=== PATIENT | female | born 1990 | race Caucasian/White ===

== ENCOUNTER → 2016-12-18 | Outpatient (CLI) | payer OTHER ==
[~2016-12-18] MED LIST: GNP150TA PO; PREN1TAB58; TERC0.8C VAGINAL
== END ==
LOC: HPND 08:31
PROVIDERS: ATTEND Obstetrics & Gynecology
DX: O09.292 Supervision of pregnancy with other poor reproductive or obstetric history, second trimester (principal)
CPT/HCPCS: 76811

== ENCOUNTER 2017-05-07 10:11 | Inpatient (IN) | payer OTHER ==
[2017-05-07] VITALS (98 sets, daily range): BP systolic 94–139; BP diastolic 52–75; PULSE 57–99; RESP 16–22; TEMP 97.7–98.1; O2SAT 97–100
[~2017-05-07 10:11] MED LIST changes: -GNP150TA PO; -TERC0.8C VAGINAL
--- NOTE | 2017-05-07 10:24 | PD ---
HPI Chief Complaint Possible ROM Date Seen: May 07, 2017 Travel History International Travel<30 Days: No Contact w/Intl Traveler<30Days: No History of Present Illness HPI Ms. Morales is a 27 y/o presenting at 38/6 weeks gestation presenting for possible ROM. Patient states that around 0830 she felt like her water broke. While she did not experience a "tamayo of fluid," she has had a constant trickle of clear fluid since that time and has saturated at least 1 pad. She reports that otherwise her has been uncomplicated. She endorses good movement and denies any dysuria, vaginal discharge, or vaginal bleeding. She states that she feels very small contractions every 2 minutes currently. She has had a consult with Dr. Hernandez in March with tubal papers signed. 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 Past Surgical History Narrative Surgical -2 uncomplicated C-sections -Multiple teeth extractions Family History Narrative Family History No FMHx reported Social History Alcohol Use: No Tobacco Use: No Substance Abuse: No Allergies-Medications (Allergen,Severity, Reaction): Uncoded Allergies: deet (Allergy, Intermediate, dizzy, nausea, 10/24/16) Home Meds Reported Medications Vit/Iron Fumarate/FA ( Vitamin Formula Tb) 1 Each Tablet 10/24/16 Review of Systems Except as stated in HPI: all other systems reviewed are Neg (Per HPI ) Physical Exam Narrative GENERAL: Well-nourished, well-developed patient. SKIN: Warm and dry. HEAD: Normocephalic and atraumatic. EYES: No scleral icterus. No injection or drainage. ENT: No nasal drainage noted. Mucous membranes pink. Airway patent. NECK: Supple, trachea midline. No JVD. CARDIOVASCULAR: Regular rate and rhythm without murmurs, gallops, or rubs. RESPIRATORY: Breath sounds equal bilaterally. No accessory muscle use. BREASTS: Bilateral exam showed no masses , no retractions, no nipple discharge. ABDOMEN/GI: Abdomen soft, non-tender, bowel sounds present, no rebound, no guarding Gravid to [-] weeks size GENITOURINARY: Per Nursing Evaluation External Genitalia: intact and normal in appearance Cervix: Posterior Dilatation: Closed Effacement: [-] Station: [-] Membranes:Ruptured Uterine Contractions: None FHT's: Category: 1 Baseline: 150s Reactive: Positive Variability: Moderate Decels: None EXTREMITIES: No cyanosis or edema. BACK: Nontender without obvious deformity. No CVA tenderness. NEUROLOGICAL: Awake and alert. Motor and sensory grossly within normal limits. Five out of 5 muscle strength in all muscle groups. Normal speech. Data Data Vital Signs Reviewed: Yes Group B Strep: Negative MDM Medical Record Reviewed: Yes Plan Ms. Morales is a 27 y/o presenting at 38/6 weeks gestation with possible ROM 1. IUP at 38/6 weeks gestation -Continue routine antepartum care -Encourage oral hydration and PNV -Category 1 tracing, reassuring -Patient plans for [facility], consult with Dr. Hernandez on 04/14/17 2. Possible ROM -Amnisure postive -Vaginal exam with closed, posterior cervix -Admission orders placed; will plan for however patient is not in active labor; continue with expectant management at this time and re-examine for possible without progression 3. GBS negative -GBS negative per patient and chart review 4. Rubella nonimmune -Pediatric team to be made aware at delivery 5. Varicella nonimmune -Pediatric team to be made aware 6. Tubal ligation -Patient requesting tubal ligation, papers signed 04/11/17 in system per chart review DW: Dr. Bay Diagnosis Diagnosis: Primary Impression: 39 weeks gestation of Ren Valencia MD R2 May 07, 2017 10:24
[2017-05-07] MEDS ORDERED: LACTATED RINGER'S 1000 ML INJ 1,000 ML IV PRN (11:43)
[2017-05-07] MEDS ORDERED: ONDANSETRON HCL 4 MG/2 ML VIAL IV PUSH PRN ×2 (11:45→20:45)
[2017-05-07] MEDS ORDERED: CITRIC ACID-SODIUM CITRATE LIQ 30 ML UDC PO SCH (11:45)
[2017-05-07] MEDS ORDERED: MINERAL OIL 10 ML VIAL TOPICAL PRN (11:45)
[2017-05-07] MEDS ORDERED: SODIUM CHLORID 0.9% 500 ML INJ 500 ML IV PRN (11:45)
[2017-05-07] MEDS ORDERED: LIDOCAINE HCL 1% 50 ML VIAL I-DERMAL PRN (11:45)
[2017-05-07] MEDS ORDERED: LIDOCAINE HCL 1% 50 ML VIAL INFIL PRN (11:45)
[2017-05-07] MEDS ORDERED: LACTATED RINGER'S 1000 ML INJ 1,000 ML IV ONE (12:00)
[2017-05-07] MEDS ORDERED: ePHEDrine/NS 25 MG/5 ML SYRINGE IV ONE (12:00)
[2017-05-07] MEDS ORDERED: DEXAMETHASONE SOD PHOS 4 MG/ML VIAL IV ONE (12:00)
[2017-05-07] MEDS ORDERED: ONDANSETRON HCL 4 MG/2 ML VIAL IV PUSH ONE (12:00)
[2017-05-07] MEDS ORDERED: OXYTOCIN 10 UNIT/ML AMP IV ONE (12:00)
[2017-05-07] MEDS ORDERED: SODIUM CHLOR 0.9% 1000 ML INJ 1,000 ML IV PRN (12:03)
[2017-05-07 12:22] LABS: AUTOMATED NEUTROPHIL # 10.8 TH/MM3 (1.8-7.7); BASOPHIL % 0.3 % (0.0-2.0); EOSINOPHIL # 0.1 TH/MM3 (0-0.4); HEMATOCRIT 34.6 % (35.0-46.0); HEMOGLOBIN 11.8 GM/DL (11.6-15.3); LYMPH % 11.8 % (9.0-44.0); LYMPHOCYTE # 1.6 TH/MM3 (1.0-4.8); MEAN CELL VOLUME 88.1 FL (80.0-100.0); MEAN CORPUSCULAR HEMOGLOBIN 30.1 PG (27.0-34.0); MEAN CORPUSCULAR HGB CONC 34.2 % (32.0-36.0); MEAN PLATELET VOLUME 8.6 FL (7.0-11.0); MONO % 7.1 % (0.0-8.0); NEUT % 79.8 % (16.0-70.0); PLATELET COUNT 218 TH/MM3 (150-450); RED BLOOD COUNT 3.93 MIL/MM3 (4.00-5.30); RED CELL DISTRIBUTION WIDTH 13.5 % (11.6-17.2); WHITE BLOOD COUNT 13.6 TH/MM3 (4.0-11.0)
[2017-05-07 12:26] LABS: BACTERIA, URINE RARE /hpf; BILIRUBIN, URINE NEG (NEG); BLOOD, URINE NEG (NEG); GLUCOSE,URINE NEG (NEG); KETONE, URINE NEG (NEG); MUCUS URINE FEW /lpf (OCC); NITRITE,URINE NEG (NEG); PH, URINE 7.5 (5.0-8.5); SQUAMOUS EPITHELIAL CELL URINE 10 /hpf (0-5); URINE COLOR LIGHT-YELLOW (YELLW/STRAW); URINE LEUKOCYTE ESTERASE NEG (NEG)
--- NOTE | 2017-05-07 13:12 | HHI.HP ---
History & Physical H&P HPI Chief Complaint Possible ROM Date Seen: May 07, 2017 Travel History International Travel<30 Days: No Contact w/Intl Traveler<30Days: No History of Present Illness HPI Ms. Morales is a 27 y/o presenting at 38/6 weeks gestation presenting for possible ROM. Patient states that around 0830 she felt like her water broke. While she did not experience a "tamayo of fluid," she has had a constant trickle of clear fluid since that time and has saturated at least 1 pad. She reports that otherwise her has been uncomplicated. She endorses good movement and denies any dysuria, vaginal discharge, or vaginal bleeding. She states that she feels very small contractions every 2 minutes currently. She has had a consult with Dr. Hernandez in March with tubal papers signed. 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 Past Surgical History Narrative Surgical -2 uncomplicated C-sections -Multiple teeth extractions Family History Narrative Family History No FMHx reported Social History Alcohol Use: No Tobacco Use: No Substance Abuse: No Allergies-Medications Allergies-Medications (Allergen,Severity, Reaction): Uncoded Allergies: deet (Allergy, Intermediate, dizzy, nausea, 10/24/16) Home Meds Reported Medications Vit/Iron Fumarate/FA ( Vitamin Formula Tb) 1 Each Tablet 10/24/16 ROS Review of Systems Except as stated in HPI: all other systems reviewed are Neg (Per HPI ) Physical Exam Physical Exam Narrative GENERAL: Well-nourished, well-developed patient. SKIN: Warm and dry. HEAD: Normocephalic and atraumatic. EYES: No scleral icterus. No injection or drainage. ENT: No nasal drainage noted. Mucous membranes pink. Airway patent. NECK: Supple, trachea midline. No JVD. CARDIOVASCULAR: Regular rate and rhythm without murmurs, gallops, or rubs. RESPIRATORY: Breath sounds equal bilaterally. No accessory muscle use. BREASTS: Bilateral exam showed no masses , no retractions, no nipple discharge. ABDOMEN/GI: Abdomen soft, non-tender, bowel sounds present, no rebound, no guarding Gravid to [-] weeks size GENITOURINARY: Per Nursing Evaluation External Genitalia: intact and normal in appearance Cervix: Posterior Dilatation: Closed Effacement: [-] Station: [-] Membranes:Ruptured Uterine Contractions: None FHT's: Category: 1 Baseline: 150s Reactive: Positive Variability: Moderate Decels: None EXTREMITIES: No cyanosis or edema. BACK: Nontender without obvious deformity. No CVA tenderness. NEUROLOGICAL: Awake and alert. Motor and sensory grossly within normal limits. Five out of 5 muscle strength in all muscle groups. Normal speech. Data Data Data Vital Signs Reviewed: Yes Group B Strep: Negative MDM MDM Medical Record Reviewed: Yes Plan Ms. Morales is a 27 y/o presenting at 38/6 weeks gestation with possible ROM 1. IUP at 38/6 weeks gestation -Continue routine antepartum care -Encourage oral hydration and PNV -Category 1 tracing, reassuring -Patient plans for [facility], consult with Dr. Hernandez on 04/14/17 2. Possible ROM -Amnisure postive -Vaginal exam with closed, posterior cervix -Admission orders placed; will plan for however patient is not in active labor; continue with expectant management at this time and re-examine for possible without progression 3. GBS negative -GBS negative per patient and chart review 4. Rubella nonimmune -Pediatric team to be made aware at delivery 5. Varicella nonimmune -Pediatric team to be made aware 6. Tubal ligation -Patient requesting tubal ligation, papers signed 04/11/17 in system per chart review DW: Ren Tirado MD R2 May 07, 2017 13:12
--- NOTE | 2017-05-07 17:56 | HHI.PR ---
SENIOR PRINCIPAL PROCESS ENGINEER Note Note 27yo with previous section x 2 admitted for premature rupture of membranes. Patient had requested a trial of labor. Since admission this am patient has had irregular mild contractions. FHR tracing is category 1. Cervix closed/long/high. Patient desires bilateral tubal ligation and has signed tubal papers. Plan repeat section with bilateral tubal ligation. Hanna Bay MD May 07, 2017 17:56
[2017-05-07] MEDS ORDERED: ceFAZolin 2 GM PREMIX 50 ML IV SCH (18:00)
[2017-05-07] MEDS: LACTATED RINGER'S 1000 ML INJ 1,000 ML IV SCH ×2 (19:07→19:43)
[2017-05-07] MEDS ORDERED: MORPHINE SULFATE PF 5 MG/10 ML VIAL ONE (19:33)
--- NOTE | 2017-05-07 20:34 | PD.OB.DELI ---
Procedure Note Section Procedure Pre Op Diagnosis: (1) Previous delivery affecting , antepartum (2) Request for sterilization (3) 39 weeks gestation of Post Op Diagnosis: Performed by Hanna Bay Procedure: Repeat Low Transverse Sec, Other (with bilateral midsegment salpingectomy) Indication for delivery: Other (premature rupture of membranes remote from delivery with two prior cesareans) Informed consent obtained: For anesthesia, For procedure Confirmed correct: Time-out taken Anesthesia: Spinal Medication prior to procedure: Antibiotics, IV Monitoring during procedure: Blood pressure monitoring, Pulse oximetry Urinary catheter: Inserted using sterile technique, To dependent drainage Sterile preparation: Duraprep Position: Supine with wedge to left side Operative Features Skin Incision: Pfannenstiel Uterine Incision: Low transverse w/knife / blunt ext Membranes Ruptured: Artificially, Amount of liquid (moderate), Appearance of fluid (fluid) Presentation: Occiput anterior, Vertex Delivery date: May 07, 2017 Delivery time: 19:57 Delivery of : Uneventful Infant: Female One Minute : 9 Five Minute : 9 Weight: 3160 Status of : Viable Placenta delivered: Intact Medications: Antibiotics Estimated blood loss: 500cc Procedure tolerated: Well Maternal Condition: Stable Condition: Stable Hanna Bay MD May 07, 2017 20:34
[2017-05-07] MEDS ORDERED: SODIUM CHLORIDE 0.9% FLUSH 10 ML FLUSH IV FLUSH PRN (20:45)
[2017-05-07] MEDS ORDERED: DOCUSATE SODIUM 50 MG/SENNA 8.6 MG TAB PO PRN (20:45)
[2017-05-07] MEDS ORDERED: SIMETHICONE 80 MG CHEWABLE TAB PO PRN (20:45)
[2017-05-07] MEDS ORDERED: oxyCODONE/ACETAMINOPHEN 5 MG/325 MG TAB PO PRN ×2 (20:45)
[2017-05-07] MEDS ORDERED: OXYTOCIN 30 UNITS-500ML PREMIX 500 ML IV ONE (20:45)
[2017-05-07] MEDS ORDERED: SODIUM CHLORIDE 0.9% FLUSH 10 ML FLUSH IV FLUSH SCH (21:00)
[2017-05-07] MEDS ORDERED: OXYTOCIN 30 UNITS-500ML PREMIX 500 ML ONE (21:54)
[2017-05-08] MEDS ORDERED: LACTATED RINGER'S 1000 ML INJ 1,000 ML IV SCH (01:34)
[2017-05-08 05:58] LABS: BASOPHIL % 0.1 % (0.0-2.0); HEMATOCRIT 31.1 % (35.0-46.0); HEMOGLOBIN 10.7 GM/DL (11.6-15.3); LYMPH % 4.6 % (9.0-44.0); LYMPHOCYTE # 0.9 TH/MM3 (1.0-4.8); MEAN CELL VOLUME 88.6 FL (80.0-100.0); MEAN CORPUSCULAR HEMOGLOBIN 30.4 PG (27.0-34.0); MEAN CORPUSCULAR HGB CONC 34.4 % (32.0-36.0); MEAN PLATELET VOLUME 8.9 FL (7.0-11.0); MONO % 3.5 % (0.0-8.0); MONOCYTE # 0.7 TH/MM3 (0-0.9); NEUT % 91.8 % (16.0-70.0); PLATELET COUNT 200 TH/MM3 (150-450); RED BLOOD COUNT 3.51 MIL/MM3 (4.00-5.30); RED CELL DISTRIBUTION WIDTH 13.2 % (11.6-17.2); WHITE BLOOD COUNT 19.6 TH/MM3 (4.0-11.0)
[2017-05-08] MEDS ORDERED: OXYTOCIN 30 UNITS-500ML PREMIX 500 ML IV PRN (06:45)
--- NOTE | 2017-05-08 07:41 | HHI.OB ---
Subjective Post Operative Day: 1 Remarks Pt seen and examined this morning. Postoperative day # 1 AFVSS overnight. Incision not draining. Decreased lochia. Denies dysuria. No breast tenderness. She is feeding the baby via breast. Appetite good. No nausea or vomiting. Patient has not yet had a bowel movement, but does endorse bowel gas. Ambulating well. Denies calf pain or shortness of breath. Otherwise, she is doing well this morning and has no other concerns. Objective Vitals/I&O Vital Signs Date Time Temp Pulse Resp B/P (MAP) Pulse Ox O2 Delivery O2 Flow Rate FiO2 05/07/17 22:45 97.7 78 20 139/72 (94) 98 05/07/17 22:45 97.7 78 20 139/72 (94) 98 05/07/17 22:22 59 20 118/60 (79) 99 05/07/17 22:10 59 18 116/55 (75) 100 05/07/17 21:45 59 18 100 05/07/17 21:45 123/61 (81) 05/07/17 21:45 97.7 05/07/17 21:38 100 05/07/17 21:38 57 20 104/55 (71) 05/07/17 21:16 22 99 05/07/17 21:16 59 110/68 (82) 05/07/17 21:01 68 18 99 05/07/17 21:01 110/72 (85) 05/07/17 20:55 62 18 105/52 (69) 99 05/07/17 20:32 97.7 05/07/17 20:32 69 16 105/53 (70) 97 05/07/17 18:25 72 05/07/17 18:20 72 05/07/17 18:15 74 05/07/17 18:10 69 05/07/17 18:05 74 05/07/17 18:00 71 05/07/17 17:55 84 05/07/17 17:50 73 05/07/17 17:45 72 05/07/17 17:40 76 05/07/17 17:35 74 05/07/17 17:31 74 05/07/17 17:30 80 05/07/17 17:30 98.1 94/75 (81) 05/07/17 17:25 81 2/21/18 17:20 76 2/21/18 17:15 73 2/21/18 17:10 80 2/21/18 17:05 75 2//18 17:00 73 2//18 16:55 75 2/21/18 16:50 70 2/21/18 16:45 75 2/21/18 16:40 76 2/21/18 16:35 76 2/21/18 16:30 72 2/21/18 16:25 76 2/21/18 16:20 76 2/21/18 16:15 82 2/21/18 16:10 78 2//18 16:05 80 2//18 16:00 73 2//18 15:55 75 2//18 15:50 75 2//18 15:45 79 2//18 15:40 77 2//18 15:35 73 2/21/18 15:30 71 2/21/18 15:25 72 2//18 15:23 98.1 2//18 15:20 74 2/21/18 15:20 77 114/65 (81) 2/18 15:15 73 2/21/18 14:40 72 2/21/18 14:35 72 2/21/18 14:30 71 2/21/18 14:25 74 2/21/18 14:20 72 2/21/18 14:15 83 2/21/18 14:10 85 2//18 14:00 71 2/21/18 13:55 73 2/21/18 13:50 73 2/21/18 13:45 75 2/21/18 13:40 71 2/21/18 13:35 74 2/21/18 13:30 75 2/21/18 13:30 18 2/21/18 13:29 98.0 70 114/55 (74) 2//18 13:25 71 2/21/18 13:20 73 2/21/18 13:15 70 2/21/18 13:10 86 2/21/18 13:05 74 2/21/18 12:55 68 2/21/18 12:50 70 2/21/18 12:45 69 2/21/18 12:40 62 2/21/18 12:30 72 2/21/18 12:25 71 05/07/17 12:20 72 05/07/17 12:15 78 05/07/17 12:10 71 05/07/17 12:05 73 05/07/17 12:00 71 05/07/17 11:55 71 05/07/17 11:50 68 05/07/17 11:45 78 05/07/17 11:40 78 05/07/17 11:37 17 05/07/17 11:35 75 05/07/17 11:30 82 05/07/17 11:25 84 05/07/17 11:20 80 05/07/17 11:15 88 05/07/17 11:10 91 05/07/17 11:05 85 05/07/17 11:00 89 05/07/17 10:55 87 05/07/17 10:50 84 05/07/17 10:45 90 05/07/17 10:45 17 05/07/17 10:40 81 05/07/17 10:40 99 109/70 (83) Result Diagram: 05/08/17 0524 Objective Remarks GENERAL: Well-nourished, well-developed patient. CARDIOVASCULAR: Regular rate and rhythm without murmurs, gallops, or rubs. RESPIRATORY: Breath sounds equal bilaterally. No accessory muscle use. ABDOMEN/GI: Abdomen soft, non-tender, bowel sounds present. Incision: Clean, dry and intact. Fundus: Firm, non-tender at umbilicus. GENITOURINARY: Light to moderate bleeding. EXTREMITIES: No cyanosis or edema, non-tender, without signs of DVT. Medications and IVs Current Medications Medications (Trade) Dose Ordered Sig/Felicita Route Start Time Stop Time Status Last Admin Cefazolin Sodium/ Dextrose 50 ml @ 100 mls/hr SUPERVISOR ROVING IV 05/07/17 18:00 05/11/17 17:59 05/07/17 19:07 Lactated Ringer's 1,000 ml @ 100 mls/hr Q10H IV 05/08/17 01:34 05/08/17 21:33 Oxytocin 500 ml @ 100 mls/hr UNSCH X1 PRN IV 05/08/17 06:45 05/09/17 06:44 (NS Flush) 2 ml BID IV FLUSH 05/07/17 21:00 (NS Flush) 2 ml UNSCH PRN IV FLUSH 05/07/17 20:45 (Mylicon Chew) 80 mg QID PRN PO 05/07/17 20:45 (Tylenol) 650 mg Q6H PRN PO 05/07/17 20:45 (Motrin) 600 mg Q6H PRN PO 05/07/17 20:45 (Percocet 5-325 Mg) 1 tab Q4H PRN PO 05/07/17 20:45 (Percocet 5-325 Mg) 2 tab Q4H PRN PO 05/07/17 20:45 (Eliz-Colace) 2 tab Q12H PRN PO 05/07/17 20:45 (M-M-R Ii Inj) 0.5 ml ONCE ONCE SQ 05/08/17 16:00 05/08/17 16:01 (Boostrix Inj) 0.5 ml ONCE ONCE IM 05/08/17 16:00 05/08/17 16:01 (Zofran Inj) 4 mg Q6H PRN IV PUSH 05/07/17 20:45 Assessment/Plan Problem List: (1) Single delivery by ICD Codes: O82 - Encounter for delivery without indication Status: Acute Assessment and Plan 27 y/o female who is postoperative day # 1 s/p . -Continue routine care. -Percocet and Motrin PRN pain. -Encouraged OOB. Advised pelvic rest for 6 wks. patient will need follow-up appointment in 1-2 weeks for incision check. -Tubal ligation completed during . -Anticipate discharge in 1-2 days pending clinical course. mara Bay MD Discharge Planning 1-2 days pending clinical course Ren Valencia MD R2 May 08, 2017 07:41
[2017-05-08 08:00] VITALS: BP 106/56; PULSE 56; RESP 16; TEMP 98
--- NOTE | 2017-05-08 11:19 | MP ---
cc: MCKAYLA ECHEVERRIA M.D. DATE OF SURGERY 05/07/2017 PREOPERATIVE DIAGNOSIS 1. 39 weeks gestation. 2. Premature rupture of membranes 3. Previous section x2 4. Desires permanent sterilization POSTOPERATIVE DIAGNOSIS 1. 39 weeks gestation. 2. Premature rupture of membranes 3. Previous section x2 4. Desires permanent sterilization PROCEDURE Repeat low transverse section without extension with a bilateral midsegment salpingectomy. ESTIMATED BLOOD LOSS 500 cc ANESTHESIA Spinal DRAINS Ruth to gravity. COMPLICATIONS No complications. COUNTS Correct x3. PATHOLOGY Bilateral tubal segments. FINDINGS 1. Normal uterus, tubes and ovaries. 2. Clear amniotic fluid. 3. Infant female occiput anterior vertex presentation without 's of 9 and 9. weight is 3160 grams which is 7 pounds. DESCRIPTION OF THE PROCEDURE The patient taken back to the operating room, prepped and draped in the usual sterile fashion, placed in the dorsal supine position with a wedge to her left side. After adequate anesthetic was administered, a Pfannenstiel incision was made in the skin and her old scar was removed. The incision was taken down to the fascia. The fascia was nicked in the midline and extended bilaterally and taken off the rectus muscles. The muscles were divided in the midline. The anterior peritoneum was entered. The vesicouterine peritoneum was taken down and a transverse hysterotomy incision was made bluntly and extended bilaterally. Bag of water was ruptured, was delivered into the operative field and a 45-second cord clamping delay before clamping the cord and handing the off to the resuscitation team. Placenta was delivered spontaneously and the endometrial cavity was curetted with a moist laparotomy sponge. The hysterotomy incision was repaired using running locking #1 chromic suture with good hemostasis at closure. Gutters were rendered free of all blood and clot material. Attention was then directed to the right fallopian tube and a window was made in the mesosalpinx and two #1 chromic sutures were placed and an intervening 2-cm segment was removed. The left tube was approached in a similar manner. Good hemostasis was noted again. The abdominal muscles were widely and they were brought together in the midline using a running stitch of #1 chromic suture. Fascia was closed with a #1 PDS. The skin was closed with a 4-0 Monocryl in a subcuticular fashion. The patient tolerated the procedure well. She has taken back to the recovery room in good condition. MD JENNIFER Hughes/TIFF /8:37 PM /11:05 AM
[2017-05-08 12:00] VITALS: BP 102/55; PULSE 68; RESP 16; TEMP 98
[2017-05-08] MEDS: IBUPROFEN 600 MG TAB PO PRN ×2 (15:44→22:47)
[2017-05-08 16:00] VITALS: BP 102/61; PULSE 67; RESP 16; TEMP 98.3
[2017-05-08] MEDS ORDERED: MEASLES, MUMPS, RUBELLA VACCINE 0.5 ML VIAL SQ ONE (16:00)
[2017-05-08] MEDS ORDERED: DIPHTH/TETANUS/ACEL PERTUSSIS (BOOSTER) 0.5 ML VIAL/PFS IM ONE (16:00)
[2017-05-08 20:00] VITALS: BP 116/58; PULSE 62; RESP 18; TEMP 98.1
[2017-05-09 08:00] VITALS: BP 132/65; PULSE 68; RESP 18; TEMP 98.4; O2SAT 99
--- NOTE | 2017-05-09 08:12 | HHI.OB ---
Subjective Post Operative Day: 2 Remarks Pt seen and examined this morning. Postoperative day # 2 AFVSS overnight. Incision not draining. Decreased lochia. Denies dysuria. No breast tenderness. She is feeding the baby via breast. Appetite good. No nausea or vomiting. Patient has not had a a bowel movement, but does endorse bowel gas. Ambulating well. Denies calf pain or shortness of breath. Otherwise, she is doing well this morning and has no other concerns. Objective Vitals/I&O Vital Signs Date Time Temp Pulse Resp B/P (MAP) Pulse Ox O2 Delivery O2 Flow Rate FiO2 05/08/17 20:00 98.1 62 18 116/58 (77) 05/08/17 16:00 98.3 67 16 05/08/17 16:00 102/61 (75) 05/08/17 12:00 98.0 68 16 102/55 (71) 05/08/17 12:00 98.0 68 16 102/55 (71) Result Diagram: 05/08/17 0524 Objective Remarks GENERAL: Well-nourished, well-developed patient. CARDIOVASCULAR: Regular rate and rhythm without murmurs, gallops, or rubs. RESPIRATORY: Breath sounds equal bilaterally. No accessory muscle use. ABDOMEN/GI: Abdomen soft, non-tender, bowel sounds present. Incision: Clean, dry and intact. Fundus: Firm, non-tender at umbilicus. GENITOURINARY: Light to moderate bleeding. EXTREMITIES: No cyanosis or edema, non-tender, without signs of DVT. Medications and IVs Current Medications Medications (Trade) Dose Ordered Sig/[facility] Route Start Time Stop Time Status Last Admin Cefazolin Sodium/ Dextrose 50 ml @ 100 mls/hr SPORTS BOOK WRITER IV 05/07/17 18:00 05/11/17 17:59 05/07/17 19:07 (NS Flush) 2 ml BID IV FLUSH 05/07/17 21:00 (NS Flush) 2 ml UNSCH PRN IV FLUSH 05/07/17 20:45 (Mylicon Chew) 80 mg QID PRN PO 05/07/17 20:45 (Tylenol) 650 mg Q6H PRN PO 05/07/17 20:45 (Motrin) 600 mg Q6H PRN PO 05/07/17 20:45 05/08/17 22:47 (Percocet 5-325 Mg) 1 tab Q4H PRN PO 05/07/17 20:45 (Percocet 5-325 Mg) 2 tab Q4H PRN PO 05/07/17 20:45 (Eliz-Colace) 2 tab Q12H PRN PO 05/07/17 20:45 (Zofran Inj) 4 mg Q6H PRN IV PUSH 05/07/17 20:45 Assessment/Plan Problem List: (1) Single delivery by ICD Codes: O82 - Encounter for delivery without indication Status: Acute Assessment and Plan 27 y/o female who is postoperative day # 2 s/p . -Continue routine care. -Percocet and Motrin PRN pain. -Encouraged OOB. Advised pelvic rest for 6 wks. patient will need follow-up appointment in 1-2 weeks for incision check. -Tubal ligation completed during . -Anticipate discharge today with baby dw Dr. Tramaine MD Discharge Planning Today pending baby's discharge. Ren Valencia MD R2 May 09, 2017 08:12
[2017-05-09] MEDS ORDERED: OXYC1TAB63 PO (08:17)
[2017-05-09] MEDS ORDERED: IBUP-232 PO (08:17)
[2017-05-09] MEDS ORDERED: PERI PO (08:17)
--- NOTE | 2017-05-09 08:18 | HHI.DCPOC ---
Discharge Care Plan Diagnosis: (1) Single delivery by Report Symptoms to Your Doctor -Temperature above 100.5 degrees -Redness, of incision or excessive or foul smelling drainage -Unusual pain or calf pain -Increased vaginal bleeding -Painful or difficulty urinating -Feelings of extreme sadness or anxiety after 2 weeks Goals to Promote Your Health * To prevent worsening of your condition and complications * To maintain your health at the optimal level Directions to Meet Your Goals Take your medications as prescribed Follow your dietary instruction Follow activity as directed Ensure plenty of rest for recovery Drink fluids for hydration Keep your appointments as scheduled Take your immunizations and boosters as scheduled If your symptoms worsen call your PCP, if no PCP go to Urgent Care Center or Emergency Room Smoking is Dangerous to Your Health. Avoid second hand smoke Call the 24-hour crisis hotline for domestic abuse at Ren Valencia MD R2 May 09, 2017 08:18
[2017-05-09] MEDS: ACETAMINOPHEN 325 MG TAB PO PRN ×2 (09:29→14:54)
[2017-05-09] MEDS: IBUPROFEN 600 MG TAB PO PRN ×2 (09:29→14:54)
== END 2017-05-09 17:27 | disposition home or self-care (01) | DRG 766 ==
LOC: HOBED 10:11 → H2EB 11:59 → H1EA 22:36
PROVIDERS: ADMIT Obstetrics & Gynecology Obstetrics; ATTEND Obstetrics & Gynecology Obstetrics
PROC: 10D00Z1 Extraction of Products of Conception, Low, Open Approach (ICD-10-PCS; principal; 2017-05-07)
PROC: 0UB70ZZ Excision of Bilateral Fallopian Tubes, Open Approach (ICD-10-PCS; 2017-05-07)
DX: O42.92 Full-term premature rupture of membranes, unspecified as to length of time between rupture and onset of labor (principal); Z30.2 Encounter for sterilization; Z37.0 Single live birth; Z3A.38 38 weeks gestation of pregnancy; O34.211 Maternal care for low transverse scar from previous cesarean delivery
CPT/HCPCS: 59025; 80307; 81001; 84112; 85025; 86850; 86900; 86901; 88302; J0690; J1100; J2274; J2405; J2590; J7120